=== PATIENT | female | born 1960 | race Caucasian/White ===

== ENCOUNTER 2021-05-05 19:25 | Emergency (ER) | payer MEDICAID ==
[~2021-05-05] VITALS: Ht 149.9 cm; Wt 40.9 kg
[2021-05-06 00:19] VITALS: BP 96/53; PULSE 80; TEMP 99
== END 2021-05-06 00:19 | disposition home or self-care (01) ==
LOC: COL.ER 19:25
DX: U07.1 COVID-19 (principal); I10 Essential (primary) hypertension